=== PATIENT | male | born 1950 | race Caucasian/White ===

== ENCOUNTER 2016-12-16 11:21 | Day surgery (SDC) | payer MEDICARE, OTHER ==
[~2016-12-16] VITALS: Ht 185.4 cm; Wt 80.8 kg
== END 2016-12-16 14:51 | disposition home or self-care (01) ==
LOC: RAD.S 11:21
PROC: 07DR3ZX Extraction of Iliac Bone Marrow, Percutaneous Approach, Diagnostic (ICD-10-PCS; principal; 2016-12-16)
DX: D47.2 Monoclonal gammopathy (principal); D80.3 Selective deficiency of immunoglobulin G [IgG] subclasses; Z79.82 Long term (current) use of aspirin; Z79.899 Other long term (current) drug therapy